=== PATIENT | male | born 1955 | race Hispanic/Latino ===

== ENCOUNTER 2017-12-09 21:40 | Emergency (ER) | payer MEDICAID ==
[~2017-12-09 21:40] MED LIST: ASPI-1005 PO; CAPT12.55 PO; CARV3.1262 PO; CILO50TA PO; ESOM40CA PO; EZET10 PO; FISH1CAP63 PO; INSNOV SQ; INSU100V12 SQ; ISOS30TA6 PO; LEVO75TA10 PO; METF500T6 PO; SIMV40TA59 PO
[2017-12-09] MEDS ORDERED: GENTAMICIN SULFATE 0.3% 3.5 GM OPHTH OINT ONE (22:56)
[2017-12-09] MEDS ORDERED: IBUPROFEN 400 MG TABLET ONE (22:56)
[2017-12-09] MEDS ORDERED: IBUPROFEN 200 MG TAB ONE (22:56)
[2017-12-09] MEDS ORDERED: DIPHENHYDRAMINE HCL 25 MG CAPSULE ONE (22:57)
== END 2017-12-10 00:28 | disposition home or self-care (01) ==
LOC: EDH 21:40
DX: H10.9 Unspecified conjunctivitis (principal); E11.9 Type 2 diabetes mellitus without complications; E78.5 Hyperlipidemia, unspecified; E07.9 Disorder of thyroid, unspecified
CPT/HCPCS: 99284; Q0163

== ENCOUNTER 2018-07-14 11:35 | Emergency (ER) | payer MEDICAID ==
[~2018-07-14 11:35] MED LIST changes: +METF-444 PO; -METF500T6 PO
[2018-07-14] MEDS ORDERED: MAG HYDROX/AL HYDROX/SIMETH ES 30 ML SUSP UDCUP ONE (12:23)
[2018-07-14] MEDS ORDERED: LIDOCAINE HCL 2% VISCOUS 15 ML UDCUP ONE (12:23)
[2018-07-14] MEDS ORDERED: ONDANSETRON HCL 4 MG/2 ML VIAL ONE (12:24)
[2018-07-14 12:41] LABS: BASOPHILS % (AUTO) 0.5 % (0.0-5.0); EOSINOPHILS % (AUTO) 2.1 % (0.0-8.0); HEMATOCRIT 44.7 % (42-54); LYMPHOCYTES % (AUTO) 15.7 % (21.0-51.0); MEAN CORPUSCULAR HEMOGLOBIN 28.3 pg (27.0-33.0); MEAN CORPUSCULAR VOLUME 85.6 fL (79-99); MONOCYTES % (AUTO) 3.9 % (3.0-13.0); NEUTROPHILS % (AUTO) 77.8 % (40.0-77.0); PLATELET COUNT (AUTO) 226 K/uL (130-400); RED BLOOD CELL COUNT(AUTO) 5.22 MIL/uL (4.50-6.20); WHITE BLOOD COUNT (AUTO) 10.1 K/uL (4.8-10.8)
[2018-07-14 12:51] LABS: CREATININE 0.9 mg/dL (0.5-1.5); POTASSIUM 4.8 mmol/L (3.5-5.1)
[2018-07-14 12:56] LABS: ALBUMIN 3.4 g/dL (3.5-5.0); BILIRUBIN,TOTAL 0.4 mg/dL (0.2-1.0); TOTAL PROTEIN, SERUM 7.5 g/dL (6.0-8.3)
== END 2018-07-14 15:08 | disposition home or self-care (01) ==
LOC: EDH 11:35
DX: K29.00 Acute gastritis without bleeding (principal); E11.9 Type 2 diabetes mellitus without complications; E78.5 Hyperlipidemia, unspecified; E07.9 Disorder of thyroid, unspecified; I10 Essential (primary) hypertension; Z95.1 Presence of aortocoronary bypass graft; Z90.49 Acquired absence of other specified parts of digestive tract
CPT/HCPCS: 36415; 71045; 74176; 80053; 82150; 82550; 83690; 84484; 85025; 93005; 96374; 99285; J2405

== ENCOUNTER → 2021-04-30 | Outpatient (CLI) | payer OTHER, MEDICARE ==
[~2021-04-30] MED LIST changes: -EZET10 PO; +EZET10TA13 PO; -ISOS30TA6 PO; +ISOS30TA92 PO
== END | disposition home or self-care (01) ==
LOC: SHCH 13:23
PROVIDERS: ATTEND Internal Medicine Cardiovascular Disease
DX: I73.9 Peripheral vascular disease, unspecified (principal)
CPT/HCPCS: 93925

== ENCOUNTER → 2023-09-10 | Outpatient (CLI) | payer OTHER, MEDICARE ==
[~2023-09-10] MED LIST changes: -CILO50TA PO; +CILO50TA2 PO; -EZET10TA13 PO; +EZET10TA81 PO
== END | disposition home or self-care (01) ==
LOC: SHCH 08:26
PROVIDERS: ATTEND Internal Medicine Cardiovascular Disease
DX: I10 Essential (primary) hypertension (principal)
CPT/HCPCS: 93306

== ENCOUNTER → 2024-03-17 | Outpatient (CLI) | payer OTHER, MEDICARE | END | disposition home or self-care (01) | LOC: SHCH 14:29 | PROVIDERS: ATTEND Internal Medicine Cardiovascular Disease | DX: I70.203 Unspecified atherosclerosis of native arteries of extremities, bilateral legs (principal); I95.2 Hypotension due to drugs; I25.810 Atherosclerosis of coronary artery bypass graft(s) without angina pectoris | CPT/HCPCS: 93925 ==